=== PATIENT | male | born 1995 | race Caucasian/White ===

== ENCOUNTER 2020-01-19 22:20 | Emergency (ER) | payer SELFPAY ==
[~2020-01-19] VITALS: Ht 175.3 cm; Wt 117.9 kg
[2020-01-19] MEDS: HALOPERIDOL LACTATE INJ 5 MG/ML VIAL IM ONE (22:30)
--- NOTE | 2020-01-19 22:30 | NUR ---
PT BIBRA C/O ALTERED MENTAL STATUS AND VOMITING. PER REPORT, POSSIBLE INGESTION OF UNKNOWN DRUG AND MARIJUANA. PT DROWSY, PLACED ON 2L SUPPLEMENTAL O2 STTING 98%. PT CONNECTED TO THE MANUFACTURING INDUSTRIAL ENGINEER AND POX
--- NOTE | 2020-01-19 22:40 | NUR ---
BLOOD COLLECTED AND SENT TO LAB
--- NOTE | 2020-01-19 22:41 | NUR ---
EKG AT BEDSIDE
[2020-01-19] MEDS ORDERED: LIDOCAINE 2% JEL UROJET 10 ML MM ONE (22:42)
[2020-01-19 22:48] LABS: BASOPHILS # (AUTO) 0.1 /CMM (0.0-0.2); EOSINOPHILS % (AUTO) 4.2 % (0.0-6.0); HEMATOCRIT 48 % (39-51); HEMOGLOBIN 16.2 g/dL (13.5-17.5); LYMPHOCYTES # (AUTO) 3.5 /CMM (0.8-4.8); LYMPHOCYTES % (AUTO) 40.9 % (20.0-44.0); MEAN CORPUSCULAR HGB CONC 34 g/dl (31.0-36.0); MEAN CORPUSCULAR VOLUME 82 fL (80-96); MONOCYTES # (AUTO) 0.8 /CMM (0.1-1.30); MONOCYTES % (AUTO) 9.7 % (2.0-12.0); NEUTROPHILS # (AUTO) 3.8 /CMM (1.8-8.9); NEUTROPHILS % (AUTO) 44.2 % (43.0-81.0); PLATELET COUNT (AUTO) 244 /CMM (150-450); RED BLOOD CELL COUNT(AUTO) 5.85 MIL/uL (4.5-6.0); WHITE BLOOD COUNT (AUTO) 8.7 K/uL (4.3-11.0)
[2020-01-19] MEDS: IV NS 0.9% 1,000 ML BAG IV ONE (22:54)
[2020-01-19] MEDS: LIDOCAINE 2% JEL UROJET 10 ML MM ONE (22:54)
--- NOTE | 2020-01-19 22:56 | NUR ---
KASANDRA (SISTER) CONTACT INFORMATION: [phone]
[2020-01-19 23:06] LABS: CALCIUM, SERUM 8.8 mg/dL (8.5-10.1); CARBON DIOXIDE 27 mmol/L (21-32); CHLORIDE 102 mmol/L (98-107); CREATININE 1.3 mg/dL (0.6-1.3); GLUCOSE 111 mg/dL (74-106); POTASSIUM 3.5 mmol/L (3.5-5.1); SERUM AMMONIA 23 umol/L (11-32); SODIUM SERUM 136 mmol/L (136-145); UREA NITROGEN, BLOOD 24 mg/dL (7-18)
--- NOTE | 2020-01-19 23:06 | NUR ---
PT TAKEN TO RADIOLOGY FOR CT
--- NOTE | 2020-01-19 23:06 | NUR ---
PATIENT RETURNED FROM CT.
[2020-01-19 23:12] LABS: ALANINE AMINOTRANSFERASE 77 U/L (12-78); ALBUMIN 3.4 g/dL (3.4-5.0); ALCOHOL, BLOOD < 3 mg/dL (0-0); ALKALINE PHOSPHATASE 48 U/L (46-116); ASPARTATE AMINOTRANSFERASE 38 U/L (15-37); BILIRUBIN,TOTAL 0.2 mg/dL (0.2-1.0); TOTAL PROTEIN, SERUM 7.4 g/dL (6.4-8.2)
[2020-01-19 23:21] LABS: APPEARANCE,URINE CLEAR (CLEAR); BILIRUBIN,URINE NEGATIVE (NEGATIVE); BLOOD, URINE SMALL Ery/uL (NEGATIVE); COLOR,URINE YELLOW (YELLOW); KETONES,URINE NEGATIVE (NEGATIVE); LEUKOCYTE ESTERASE ,URINE NEGATIVE (NEGATIVE); NITRITE, URINE NEGATIVE (NEGATIVE); PROTEIN,URINE NEGATIVE (NEGATIVE); UGLUCOSE NEGATIVE (NEGATIVE); UROBILINOGEN,URINE 0.2 EU/dL (0.2)
[2020-01-19 23:23] LABS: SALICYLATE 0.7 mg/dL (2.8-20.0)
[2020-01-19 23:25] LABS: ACETAMINOPHEN < 2 ug/ml (10-30)
--- NOTE | 2020-01-20 03:02 | NUR ---
PATIENT IS SLEEPING. EASILY AROUSABLE THROUGH VERBAL AND TACTILE STIMULI .CONNECTED TO THE MONITOR. BREATHING EVENLY AND UNLABORED ON ROOM AIR. CONNECTED TO THE MONITIOR. SIDE RAILS ARE UP FOR SAFETY. CALL LIGHT WITHIN REACH. SITTER AT BEDSIDE.
--- NOTE | 2020-01-20 05:27 | NUR ---
Patient discharged to home in stable condition. Written and verbal after care instructions given. Patient verbalizes understanding of instruction.
--- NOTE | 2020-01-20 05:27 | NUR ---
Patient is ambulatory with a steady gait. Mother and sister outside to pick patient up to go home.
[2020-01-20 05:28] VITALS: BP 124/73
== END 2020-01-20 05:28 | disposition home or self-care (01) ==
LOC: EDBD 22:23 → ER 22:23
DX: F14.921 Cocaine use, unspecified with intoxication delirium (principal); F12.921 Cannabis use, unspecified with intoxication delirium; R11.10 Vomiting, unspecified; R45.1 Restlessness and agitation; R94.31 Abnormal electrocardiogram [ECG] [EKG]
CPT/HCPCS: 36415; 51702; 70450; 71045; 80048; 80076; 80299; 80307 ×2; 80320; 81001; 82140; 84443; 84484; 85025; 85378; 85730; 93005; 96360; 99291; J3490; J7030; 81000-TC; G0480